=== PATIENT | female | born 1950 | race Asian ===

== ENCOUNTER 2024-03-19 19:12 | Emergency (ER) | payer BC, MEDICARE ==
[~2024-03-19] VITALS: Ht 157.5 cm; Wt 59.0 kg
[2024-03-19 19:27] LABS: BASOPHILS % (AUTO) 0.9 % (0.0-2.0); EOSINOPHILS % (AUTO) 1.7 % (1.0-6.0); HEMATOCRIT 38.4 % (36-46); HEMOGLOBIN 12.5 g/dL (12.0-16.0); LYMPHOCYTES # (AUTO) 3.3 K/uL (1.0-4.8); LYMPHOCYTES % (AUTO) 47.9 % (22.0-44.0); MEAN CORPUSCULAR HEMOGLOBIN 29.5 pg (26.0-34.0); MEAN CORPUSCULAR HGB CONC 32.5 G/dL (31.0-37.0); MEAN CORPUSCULAR VOLUME 91 fL (80-100); MONOCYTES # (AUTO) 0.7 K/uL (0.1-1.0); MONOCYTES % (AUTO) 10.1 % (2.0-9.0); NEUTROPHILS # (AUTO) 2.7 K/uL (1.8-7.7); NEUTROPHILS % (AUTO) 39.4 % (40.0-70.0); PLATELET COUNT (AUTO) 126 K/uL (150-450); RED BLOOD CELL COUNT(AUTO) 4.23 MIL/uL (4.00-5.20); RED CELL DISTRIBUTION WIDTH 14.9 % (11.5-14.5); WHITE BLOOD COUNT (AUTO) 6.9 K/uL (4.5-11.0)
[2024-03-19 19:36] LABS: CALCIUM, TOTAL 8.1 mg/dL (8.8-10.5); CREATININE 1.14 mg/dL (0.60-1.30); POTASSIUM 3.7 mmol/L (3.5-5.1)
[2024-03-19 19:41] LABS: PROTHROMBIN TIME 10.9 SEC (9.4-11.6)
[2024-03-19 19:42] LABS: BILIRUBIN,TOTAL 0.2 mg/dL (0.1-1.0); TOTAL PROTEIN, SERUM 8.6 g/dL (6.4-8.2)
[2024-03-19 19:43] VITALS: TEMP 98.2
[2024-03-19 19:43] LABS: ALBUMIN 3.5 g/dL (3.4-5.0)
[2024-03-19 19:44] LABS: TROPONIN I-HIGH SENSITIVITY 11 ng/L (<51)
[2024-03-19] MEDS: NiCARDipine HCL 25 MG in SODIUM CHLORIDE 0.9% 240 ML IV PRN (19:53)
[2024-03-19] MEDS ORDERED: MANNITOL 20%-100 GM/500 ML 500 ML IV SCH (20:30)
[2024-03-19] MEDS: HUM PROTHROMBIN CPLX(PCC)4FACT 500 UNIT VIAL IV ONE (20:37)
[2024-03-19] MEDS: LevETIRAcetam 1,500 MG in DEXTROSE 5%-WATER 100 ML IV ONE (20:37)
[2024-03-19] MEDS: HUM PROTHROMBIN CPLX(PCC)4FACT 1,000 UNIT VIAL IVP ONE (20:43)
[2024-03-19] MEDS: HUM PROTHROMBIN CPLX(PCC)4FACT 1,000 UNIT VIAL IV ONE (20:53)
[2024-03-19] MEDS: MANNITOL 20%-100 GM/500 ML 500 ML IV ONE (21:10)
[2024-03-19] MEDS: MANNITOL 25%-12.5 GM/50 ML VIAL IVP ONE (21:18)
[2024-03-19] MEDS: DEXAMETHASONE SOD PHOS 4 MG/ML 5 ML VIAL IVP ONE (21:18)
[2024-03-19 21:20] LABS: APPEARANCE,URINE CLEAR (CLEAR); BILIRUBIN,URINE NEGATIVE (NEGATIVE); COLOR,URINE LIGHT YELLOW (YELLOW); GLUCOSE, URINE (UA) NEGATIVE (NEGATIVE); KETONES,URINE NEGATIVE (NEGATIVE); LEUKOCYTE ESTERASE ,URINE NEGATIVE (NEGATIVE); NITRATE,URINE POSITIVE (NEGATIVE); OCCULT BLOOD,URINE NEGATIVE (NEGATIVE); PROTEIN,URINE TRACE mg/dL (NEGATIVE); SPECIFIC GRAVITIY, URINE 1.009 (1.003-1.030); UROBILINOGEN,URINE <=1.0 mg/dL (<=1.0)
[2024-03-19 21:21] LABS: COVID AG,FIA SOURCE NASAL SWAB
[2024-03-19 21:29] LABS: AMPHET/METH SCREEN,URINE NEGATIVE (NEGATIVE); BARBITURATE SCREEN, URINE NEGATIVE (NEGATIVE); BENZODIAZEPINES SCREEN,URINE NEGATIVE (NEGATIVE); CANNABINOID SCREEN,URINE NEGATIVE (NEGATIVE); COCAINE SCREEN,URINE NEGATIVE (NEGATIVE); METHADONE SCREEN, URINE NEGATIVE (NEGATIVE); OPIATE SCREEN,URINE NEGATIVE (NEGATIVE); PHENCYCLIDINE SCREEN,URINE NEGATIVE (NEGATIVE)
[2024-03-19 21:36] LABS: ALCOHOL, URINE DRUG SCREEN NEGATIVE (NEGATIVE)
[2024-03-19 21:40] LABS: INFLUENZA TYPE A NEGATIVE FOR TYPE A (NEGATIVE); INFLUENZA TYPE B NEGATIVE FOR TYPE B (NEGATIVE); SARS-COV2 (COVID) ANTIGEN,FIA Negative (Negative)
[2024-03-19 21:43] LABS: BACTERIA,URINE Many /HPF (None Seen); RBC,URINE 0-2 /HPF (0-2); WBC,URINE None Seen /HPF (0-5)
[2024-03-19] MEDS: LORazepam 2 MG/ML VIAL IVP ONE (22:00)
[2024-03-19 22:15] VITALS: BP 130/54; PULSE 109; RESP 22; O2SAT 97
== END 2024-03-19 23:36 | disposition short-term general hospital (02) ==
LOC: EMS 19:12
DX: I63.9 Cerebral infarction, unspecified (principal); Z20.822 Contact with and (suspected) exposure to COVID-19
CPT/HCPCS: 99291; 96365; 70450; 96375; 71045; 96366; 87426; 80053; 81001; 84484; 85025; 85610; 85730; 87077; 87086; 87804; 86850; 86900; 86901; 36415; 82948; 93005; 96368; 80307; J0712; J7168 ×2; J1100; J2060; J3490; J7060; J7050; 87186; J2150

== ENCOUNTER 2024-08-01 19:13 | Emergency (ER) | payer MEDICARE ==
[~2024-08-01] VITALS: Ht 152.4 cm; Wt 56.9 kg
[2024-08-01] MEDS ORDERED: MULT-660 PO (19:38)
[2024-08-01] MEDS ORDERED: SENN-376 PO (19:38)
[2024-08-01] MEDS ORDERED: MELA5TAB40 PO (19:38)
[2024-08-01] MEDS ORDERED: LOSA-382 PO (19:38)
[2024-08-01] MEDS ORDERED: AMLO-258 PO (19:38)
[2024-08-01] MEDS ORDERED: CARV-165 PO (19:38)
[2024-08-01] MEDS ORDERED: LIDO1ADH83 TP (19:38)
[2024-08-01] MEDS ORDERED: LACT10SO85 PO (19:38)
[2024-08-01] MEDS ORDERED: ACET-2123 PO (19:38)
[2024-08-01] MEDS: BACITRACIN 0.9 GM PACKET OINTMENT TP ONE (23:01)
[2024-08-01] MEDS: PERTUSS(ACELL),DIPH,TET/PF 0.5 ML SYRINGE [ADULT] IM. ONE (23:03)
[2024-08-02 00:44] VITALS: BP 101/75; PULSE 88; RESP 18; TEMP 98.5; O2SAT 97
[2024-08-02] MEDS: ACETAMINOPHEN 325 MG TABLET PO ONE (01:00)
== END 2024-08-02 02:33 | disposition home or self-care (01) ==
LOC: EMS 19:13
DX: S01.01XA Laceration without foreign body of scalp, initial encounter (principal); R41.82 Altered mental status, unspecified; I10 Essential (primary) hypertension; Z79.899 Other long term (current) drug therapy; W05.0XXA Fall from non-moving wheelchair, initial encounter; Y93.89 Activity, other specified; Y92.89 Other specified places as the place of occurrence of the external cause; Y99.8 Other external cause status
CPT/HCPCS: 12002; 70450; 72125; 90471; 90715; 99285